=== PATIENT | female | born 1980 | race Native Hawaiian/Other Pacific Islander ===

== ENCOUNTER 2020-08-17 07:58 | Emergency (ER) | payer OTHER ==
[~2020-08-17] VITALS: Ht 157.5 cm; Wt 70.5 kg
[2020-08-17] MEDS ORDERED: NS 1,000 ML IV ONE (08:35)
[2020-08-17 09:03] LABS: BASO % 0.4 % (0.0-1.0); EOS # 0.2 10^3/uL (0.0-0.5); EOS % 2.3 % (0.0-3.0); HEMATOCRIT 37.8 % (36.0-47.0); HEMOGLOBIN 12.9 g/dl (12.0-15.5); LYMPH % 27.3 % (24.0-44.0); MEAN CORPUSCULAR HEMOGLOBIN 31.7 pg (27.0-33.0); MEAN CORPUSCULAR HGB CONC 34.1 g/dl (32.0-36.5); MEAN CORPUSCULAR VOLUME 92.9 fl (80.0-96.0); MONO # 0.6 10^3/uL (0.0-0.8); MONO % 7.9 % (2.0-8.0); NEUTROPHILS # 4.5 10^3/uL (1.5-8.5); NEUTROPHILS % 61.7 % (36.0-66.0); PLATELET COUNT, AUTOMATED 237 10^3/uL (150-450); RED BLOOD COUNT 4.07 10^6/uL (4.00-5.40); WHITE BLOOD COUNT 7.4 10^3/uL (4.0-10.0)
[2020-08-17 09:34] LABS: HCG, SERUM QUALITATIVE POSITIVE (NEGATIVE)
[2020-08-17 09:36] LABS: ALBUMIN 3.7 GM/DL (3.2-5.2); ALT/SGPT 22 U/L (12-78); BILIRUBIN,DIRECT < 0.1 MG/DL (0.0-0.2); BILIRUBIN,TOTAL 0.2 MG/DL (0.2-1.0); BLOOD UREA NITROGEN 18 MG/DL (7-18); CALCIUM LEVEL 8.5 MG/DL (8.5-10.1); CARBON DIOXIDE LEVEL 23 MEQ/L (21-32); CHLORIDE LEVEL 108 MEQ/L (98-107); CREATININE FOR GFR 0.62 MG/DL (0.55-1.30); GLOMERULAR FILTRATION RATE > 60.0 (>58); GLUCOSE, FASTING 90 MG/DL (70-100); LIPASE 111 U/L (73-393); POTASSIUM SERUM 4.4 MEQ/L (3.5-5.1); SODIUM LEVEL 138 MEQ/L (136-145); TOTAL PROTEIN 7.2 GM/DL (6.4-8.2)
[2020-08-17 10:16] LABS: HCG, SERUM QUANTITATIVE 15291 MIU/ML
--- NOTE | 2020-08-17 10:50 | REP ---
INDICATION: abdominal pain, . COMPARISON: None. TECHNIQUE: Multiple sonographic images of the pelvis including Doppler ultrasound. FINDINGS: The uterus is anteverted and enlarged measuring 10.3 x 5.8 x 6.1 cm. There is an intrauterine gestational sac without a pole. The mean gestational sac diameter is 10.8 mm. This corresponds to a gestational age of 5 weeks 6 days. Right ovary: The right ovary is normal size measuring 2.7 x 1.2 x 2.4 cm. There is no dominant mass or cyst. Left ovary: The left ovary is upper normal size measuring 3.8 x 3.0 x 4.4 cm. There is a left ovarian cyst measuring 3.1 x 2.4 x 2.6 cm. There is vascular flow in both ovaries. The Doppler resistive index in the parenchymal arteries of the right ovary 0.65 the left ovary 0.54. Echogenic debris is incidentally identified in the bladder. IMPRESSION: Intrauterine gestational sac without a pole at this time. Estimated gestational age based on mean sac diameter is 5 weeks 6 days. There is a 3.1 cm left ovarian cyst. There is vascular flow in both ovaries. There is echogenic debris in the bladder. <Electronically signed by Ata Proctor > 08/17/20 [id number]
[2020-08-17] MEDS ORDERED: MACR100C43 PO (12:55)
[2020-08-17] MEDS ORDERED: PRENTAB29 PO (12:55)
[2020-08-17] MEDS ORDERED: REGL5TAB2 PO (12:55)
[2020-08-17 14:00] VITALS: BP 99/61
== END 2020-08-17 14:17 | disposition home or self-care (01) ==
LOC: M ED 07:58
DX: O23.41 Unspecified infection of urinary tract in pregnancy, first trimester (principal); O26.891 Other specified pregnancy related conditions, first trimester; O10.011 Pre-existing essential hypertension complicating pregnancy, first trimester; O99.281 Endocrine, nutritional and metabolic diseases complicating pregnancy, first trimester; E78.5 Hyperlipidemia, unspecified; M10.9 Gout, unspecified; Z87.442 Personal history of urinary calculi; O99.210 Obesity complicating pregnancy, unspecified trimester; O99.331 Smoking (tobacco) complicating pregnancy, first trimester; F17.210 Nicotine dependence, cigarettes, uncomplicated; Z3A.01 Less than 8 weeks gestation of pregnancy

== ENCOUNTER 2020-09-03 20:10 | Emergency (ER) | payer OTHER ==
[~2020-09-03] VITALS: Ht 157.5 cm; Wt 79.1 kg
[~2020-09-03 20:10] MED LIST: MACR100C43 PO; PRENTAB29 PO; REGL5TAB2 PO
[2020-09-03 20:11] VITALS: BP 155/86
[2020-09-03 21:47] LABS: APPEARANCE, URINE HAZY (CLEAR); BACTERIA, URINE AUTO NEGATIVE (NEGATIVE); BILIRUBIN, URINE AUTO NEGATIVE (NEGATIVE); BLOOD, URINE BLOOD 2+ (NEGATIVE); COLOR, URINE YELLOW (YELLOW); GLUCOSE, URINE (UA) AUTO NEGATIVE (NEGATIVE); KETONE, URINE AUTO NEGATIVE (NEGATIVE); LEUKOCYTE ESTERASE, URINE AUTO TRACE (NEGATIVE); MUCUS, URINE SMALL (NEGATIVE); NITRITE, URINE AUTO POSITIVE (NEGATIVE); PROTEIN, URINE AUTO NEGATIVE (NEGATIVE); RBC, URINE AUTO 14 /HPF (0-3); SPECIFIC GRAVITY URINE AUTO 1.017 (1.002-1.035); SQUAMOUS EPITHELIAL CELL UR AU 3 /HPF (0-6); UROBILINOGEN, URINE AUTO 0.2 mg/dL (0.0-2.0); WBC, URINE AUTO 16 /HPF (0-3)
[2020-09-03 21:48] LABS: HEMATOCRIT 36.7 % (36.0-47.0); HEMOGLOBIN 12.3 g/dl (12.0-15.5); MEAN CORPUSCULAR HEMOGLOBIN 31.3 pg (27.0-33.0); MEAN CORPUSCULAR HGB CONC 33.5 g/dl (32.0-36.5); MEAN CORPUSCULAR VOLUME 93.4 fl (80.0-96.0); PLATELET COUNT, AUTOMATED 280 10^3/uL (150-450); RED BLOOD COUNT 3.93 10^6/uL (4.00-5.40); WHITE BLOOD COUNT 9.6 10^3/uL (4.0-10.0)
[2020-09-03 22:23] LABS: ALBUMIN 3.7 GM/DL (3.2-5.2); ALT/SGPT 27 U/L (12-78); BILIRUBIN,TOTAL 0.2 MG/DL (0.2-1.0); BLOOD UREA NITROGEN 8 MG/DL (7-18); CALCIUM LEVEL 8.6 MG/DL (8.5-10.1); CARBON DIOXIDE LEVEL 27 MEQ/L (21-32); CHLORIDE LEVEL 106 MEQ/L (98-107); CREATININE FOR GFR 0.66 MG/DL (0.55-1.30); GLOMERULAR FILTRATION RATE > 60.0 (>58); GLUCOSE, FASTING 98 MG/DL (70-100); HCG, SERUM QUANTITATIVE 59684 MIU/ML; POTASSIUM SERUM 3.6 MEQ/L (3.5-5.1); SODIUM LEVEL 139 MEQ/L (136-145); TOTAL PROTEIN 7.1 GM/DL (6.4-8.2)
--- NOTE | 2020-09-03 23:02 | REPVR ---
PROCEDURE INFORMATION: Exam: US First Trimester, Transabdominal Exam date and time: 09/03/20 (9:30pm) Age: 40 years old Clinical indication: female. RLQ pain and spotting. Gestational age: 7 weeks 6 days. . TECHNIQUE: Imaging protocol: Real-time transabdominal obstetrical ultrasound of the maternal pelvis and a first trimester , less than 14 weeks 0 days, with image documentation. COMPARISON: No relevant prior studies available FINDINGS: The LMP is reported to be: 07/10/20 Based on the menstrual history, the current expected age = 7 weeks 6 days. An early single intrauterine gestation is likely identified, approx. 6 weeks 2 days gestational age, based on the crown-rump length (CRL = 4.6 mm). Based on the CRL measurement, the REINIER = 04/27/21. The mean sac diameter (MSD) = 26 mm. This corresponds to an expected age = 7 weeks 6 days. No heart motion is recorded. A yolk sac is visualized. The uterus is anteverted, measuring 10.6 x 6.1 x 8.8 cm in dimensions. A few small Nabothian cysts (largest measures 7 x 7 mm size). The maternal right ovary measures 2.9 x 1.6 x 1.5 cm in dimensions. The left ovary measures 3.7 x 3.3 x 2.9 cm in dimensions. Left ovarian cyst (2.8 x 2.8 x 2.2 cm size) (2.6 cm avg. size). There is no evidence of torsion on Doppler evaluation. No free pelvic fluid is appreciated. No solid adnexal mass. IMPRESSION: The findings are compatible with DEMISE at approx. 6-7 weeks gestational age. A single intrauterine is likely identified. A yolk sac is visualized. No heart motion is recorded. Electronically signed by: Marina Soliman On 09/03/2020 23:01:54 PM
[2020-09-03 23:47] LABS: CHLAMYDIA DNA AMPLIFICATION NEGATIVE (NEGATIVE); GC DNA AMPLIFICATION NEGATIVE (NEGATIVE)
== END 2020-09-04 00:09 | disposition home or self-care (01) ==
LOC: M ED 20:10
DX: O20.0 Threatened abortion (principal); Z3A.01 Less than 8 weeks gestation of pregnancy

== ENCOUNTER 2021-01-18 00:40 | Emergency (ER) | payer OTHER ==
[~2021-01-18] VITALS: Ht 157.5 cm; Wt 74.4 kg
[2021-01-18 00:41] VITALS: BP 138/91
[2021-01-19] MEDS ORDERED: KETO10TAB PO (10:15)
== END 2021-01-18 04:43 | disposition left against medical advice (07) ==
LOC: M ED 00:40
DX: Z53.29 Procedure and treatment not carried out because of patient's decision for other reasons (principal)

== ENCOUNTER 2021-01-19 06:53 | Emergency (ER) | payer OTHER ==
[~2021-01-19] VITALS: Ht 157.5 cm; Wt 74.4 kg
[2021-01-19] MEDS ORDERED: KETOROLAC 30 MG/ML 1ML VIAL IV ONE (07:30)
[2021-01-19] MEDS ORDERED: ISOVUE-370 76% 100ML VIAL As Ordered ONE (08:20)
[2021-01-19 08:21] LABS: BASO % 0.7 % (0.0-1.0); EOS # 0.1 10^3/uL (0.0-0.5); EOS % 2.2 % (0.0-3.0); HEMATOCRIT 40.6 % (36.0-47.0); HEMOGLOBIN 13.3 g/dl (12.0-15.5); LYMPH # 1.7 10^3/uL (1.5-5.0); LYMPH % 28.4 % (24.0-44.0); MEAN CORPUSCULAR HEMOGLOBIN 29.4 pg (27.0-33.0); MEAN CORPUSCULAR HGB CONC 32.8 g/dl (32.0-36.5); MEAN CORPUSCULAR VOLUME 89.6 fl (80.0-96.0); MONO # 0.5 10^3/uL (0.0-0.8); MONO % 8.8 % (2.0-8.0); NEUTROPHILS # 3.5 10^3/uL (1.5-8.5); NEUTROPHILS % 59.7 % (36.0-66.0); PLATELET COUNT, AUTOMATED 253 10^3/uL (150-450); RED BLOOD COUNT 4.53 10^6/uL (4.00-5.40); WHITE BLOOD COUNT 5.8 10^3/uL (4.0-10.0)
--- NOTE | 2021-01-19 08:22 | REP ---
INDICATION: right flank and RUQ pain 3 weeks. COMPARISON: None. TECHNIQUE: Transabdominal right upper quadrant sonography. Scan quality is mildly inhibited by bowel gas. FINDINGS: Scanning through the right upper quadrant of the abdomen demonstrates a normal sized, thin-walled gallbladder without evidence of stone or polyp. Common bile duct is normal measuring 0.3 cm in greatest diameter. No focal liver lesion is seen. Liver size is normal. No pancreatic abnormality is observed. No right renal abnormality is seen. There is no evidence of ascites. The right kidney measures 10.9 by 5.2 x 3.9 cm. IMPRESSION: Negative right upper quadrant sonography. <Electronically signed by Sergio Alaniz > 01/19/21 [id number]
[2021-01-19 08:28] LABS: ALBUMIN 3.6 GM/DL (3.2-5.2); ALT/SGPT 32 U/L (12-78); BILIRUBIN,DIRECT < 0.1 MG/DL (0.0-0.2); BILIRUBIN,TOTAL 0.3 MG/DL (0.2-1.0); LIPASE 151 U/L (73-393); TOTAL PROTEIN 7.3 GM/DL (6.4-8.2)
--- NOTE | 2021-01-19 08:33 | REP ---
INDICATION: right upper quadrant and right flank pain. COMPARISON: None TECHNIQUE: Axial contrast-enhanced images from the lung bases to the pubic symphysis using 100 cc Isovue 370 intravenous contrast material. Coronal and sagittal reformations obtained. This CT examination was performed using the following dose reduction techniques: Automated exposure control, adjustment of mA and/or kv according to the patient's size, and the use of iterative reconstruction technique. FINDINGS: Lung bases are clear. Liver, spleen, pancreas, gallbladder, bilateral adrenal glands and kidneys are normal. The enteric system including stomach, small, and large bowel appears normal. No evidence for obstruction or acute inflammatory process. Normal terminal ileum and appendix are identified in the right lower quadrant. Pelvis demonstrates normal bladder and age-appropriate uterus/adnexa. No ascites. No free air. No intraperitoneal or retroperitoneal adenopathy. Abdominal aorta and vasculature appear normal. Musculoskeletal structures are intact and without acute osseous abnormality. IMPRESSION: No acute abdominopelvic pathology appreciated. <Electronically signed by Candido Patel > 01/19/21 [id number]
[2021-01-19 09:56] VITALS: BP 122/80
[2021-01-19] MEDS ORDERED: KETO10TAB PO (10:15)
== END 2021-01-19 10:22 | disposition home or self-care (01) ==
LOC: M ED 06:53
DX: R10.9 Unspecified abdominal pain (principal); R11.0 Nausea
CPT/HCPCS: 74177; 76705; 80047; 80076; 81001; 83690; 84702; 85025; 87088; 87186; 96374; 99284; J1885; Q9967

== ENCOUNTER 2021-01-21 04:33 | Emergency (ER) | payer OTHER ==
[~2021-01-21] VITALS: Ht 157.5 cm; Wt 67.3 kg
[~2021-01-21 04:33] MED LIST changes: +KETO10TAB PO
[2021-01-21 06:42] LABS: BASO % 0.3 % (0.0-1.0); EOS # 0.1 10^3/uL (0.0-0.5); EOS % 1.5 % (0.0-3.0); HEMATOCRIT 38.7 % (36.0-47.0); HEMOGLOBIN 12.7 g/dl (12.0-15.5); LYMPH # 1.7 10^3/uL (1.5-5.0); LYMPH % 24.3 % (24.0-44.0); MEAN CORPUSCULAR HEMOGLOBIN 29.4 pg (27.0-33.0); MEAN CORPUSCULAR HGB CONC 32.8 g/dl (32.0-36.5); MEAN CORPUSCULAR VOLUME 89.6 fl (80.0-96.0); MONO # 0.6 10^3/uL (0.0-0.8); MONO % 8.6 % (2.0-8.0); NEUTROPHILS # 4.4 10^3/uL (1.5-8.5); NEUTROPHILS % 65.2 % (36.0-66.0); PLATELET COUNT, AUTOMATED 250 10^3/uL (150-450); RED BLOOD COUNT 4.32 10^6/uL (4.00-5.40); WHITE BLOOD COUNT 6.8 10^3/uL (4.0-10.0)
[2021-01-21 07:21] LABS: HCG, SERUM QUALITATIVE NEGATIVE (NEGATIVE)
[2021-01-21 07:24] LABS: ALBUMIN 3.5 GM/DL (3.2-5.2); ALT/SGPT 32 U/L (12-78); BILIRUBIN,DIRECT 0.1 MG/DL (0.0-0.2); BILIRUBIN,TOTAL 0.4 MG/DL (0.2-1.0); BLOOD UREA NITROGEN 12 MG/DL (7-18); CALCIUM LEVEL 8.6 MG/DL (8.5-10.1); CARBON DIOXIDE LEVEL 26 MEQ/L (21-32); CHLORIDE LEVEL 109 MEQ/L (98-107); CK-MB VALUE MASS < 1.0 NG/ML (<3.6); CPK CREATINE PHOSPHOKINASE 89 U/L (26-192); CREATININE FOR GFR 0.77 MG/DL (0.55-1.30); GLOMERULAR FILTRATION RATE > 60.0 (>58); GLUCOSE, FASTING 95 MG/DL (70-100); LIPASE 138 U/L (73-393); MB/CK RELATIVE INDEX 1.12 (< OR =4); SODIUM LEVEL 140 MEQ/L (136-145); TOTAL PROTEIN 7.1 GM/DL (6.4-8.2); TROPONIN I 0.04 NG/ML (< 0.10)
--- NOTE | 2021-01-21 07:56 | REPVR ---
PROCEDURE INFORMATION: Exam: CT Head Without Contrast Exam date and time: 01/21/2021 5:57 AM Age: 40 years old Clinical indication: Numbness / parasthesia TECHNIQUE: Imaging protocol: Computed tomography of the head without contrast. Radiation optimization: All CT scans at this facility use at least one of these dose optimization techniques: automated exposure control; mA and/or kV adjustment per patient size (includes targeted exams where dose is matched to clinical indication); or iterative reconstruction. COMPARISON: No relevant prior studies available. FINDINGS: Brain: Normal. No hemorrhage. Unremarkable white matter. No mass effect. Cerebral ventricles: No ventriculomegaly. Paranasal sinuses: Visualized sinuses are unremarkable. No fluid levels. Mastoid air cells: Visualized mastoid air cells are well aerated. Bones/joints: Unremarkable. No acute fracture. Soft tissues: Unremarkable. IMPRESSION: No acute intracranial abnormality. Electronically signed by: Joe Zhang On 01/21/2021 07:56:27 AM
--- NOTE | 2021-01-21 08:09 | REP ---
INDICATION: CHEST PAIN. COMPARISON: No comparison chest. TECHNIQUE: Portable upright AP chest radiograph. FINDINGS: The lungs are well inflated and free of infiltrate. Pleural angles are sharp. Heart size is normal. Pulmonary vasculature is not increased. EKG monitoring electrodes are present. IMPRESSION: No active disease. <Electronically signed by Sergio Alaniz > 01/21/21 [id number]
[2021-01-21] MEDS ORDERED: MACR100C43 PO (11:08)
--- NOTE | 2021-01-21 12:12 | REPVR ---
PROCEDURE INFORMATION: Exam: MR Head Without Contrast Exam date and time: 01/21/2021 11:24 AM Age: 40 years old Clinical indication: Pain; Headache not specified; Additional info: Paresthesia TECHNIQUE: Imaging protocol: MR of the head without contrast. COMPARISON: CT Head without contrast 01/21/2021 7:42 AM FINDINGS: Brain: No acute hemorrhage or acute territorial infarct. Brain volume is maintained. The expected vascular flow voids are present centrally. Partially empty sella is noted as a normal variant, as is benign tonsillar ectopia. These are of no acute clinical significance. Cerebral ventricles: Normal. No ventriculomegaly. Bones/joints: Unremarkable. Paranasal sinuses: Normal as visualized. No acute sinusitis. Mastoid air cells: Normal as visualized. No mastoid effusion. Orbital cavity: Unremarkable. Soft tissues: Unremarkable. IMPRESSION: No acute intracranial abnormality. No significant change from the same day CT scan. Electronically signed by: Joe Zhang On 01/21/2021 12:11:59 PM
--- NOTE | 2021-01-21 12:16 | REPVR ---
PROCEDURE INFORMATION: Exam: MRA Head Without Contrast; Arteriography Exam date and time: 01/21/2021 11:24 AM Age: 40 years old Clinical indication: Pain; Headache; Additional info: Paresthesia TECHNIQUE: Imaging protocol: Magnetic resonance angiography head without contrast. Exam focused on the arteries. COMPARISON: CT Head without contrast 01/21/2021 7:42 AM FINDINGS: ANTERIOR CIRCULATION: Right internal carotid artery: Focal outpouching directed posteriorly at the level of the carotid terminus on the right, measuring 2 mm and raising the question a small aneurysm here. This is best seen on axial series 201, frame 94. No adjacent stenosis. Right middle cerebral artery: No occlusion or significant stenosis. No aneurysm. Right anterior cerebral artery: No occlusion or significant stenosis. No aneurysm. Left internal carotid artery: Intracranial segment is patent with no significant stenosis. No aneurysm. Left middle cerebral artery: No occlusion or significant stenosis. No aneurysm. Left anterior cerebral artery: No occlusion or significant stenosis. No aneurysm. POSTERIOR CIRCULATION: Right vertebral artery: No occlusion or significant stenosis. No aneurysm. Left vertebral artery: No occlusion or significant stenosis. No aneurysm. Basilar artery: No occlusion or significant stenosis. No aneurysm. Right posterior cerebral artery: origin of the right posterior cerebral artery without significant stenosis. Left posterior cerebral artery: No occlusion or significant stenosis. No aneurysm. IMPRESSION: 1. No significant stenosis. 2. origin right posterior cerebral artery. 3. Question tiny aneurysm of the ICA terminus on the right. That can be confirmed with CTA imaging. Electronically signed by: Joe Zhang On 01/21/2021 12:15:40 PM
[2021-01-21 13:01] VITALS: BP 148/84
--- NOTE | 2021-01-21 21:21 | ECGEPIP ---
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
--- NOTE | 2021-01-26 11:33 | ED PDOC ---
Post-Departure Follow-Up radiology report faxed to [facility] neurology Barbie Velasquez MD Jan 26, 2021 11:32
== END 2021-01-21 13:04 | disposition home or self-care (01) ==
LOC: M ED 04:33
DX: R20.2 Paresthesia of skin (principal)

== ENCOUNTER 2021-02-08 15:03 | Emergency (ER) | payer OTHER ==
[~2021-02-08] VITALS: Ht 157.5 cm; Wt 68.2 kg
--- NOTE | 2021-02-08 17:04 | REP ---
INDICATION: chest pressure. COMPARISON: 01/21/2021. TECHNIQUE: Single portable AP view of the chest was performed. The study is performed at 4:26 p.m. and is submitted for interpretation 4:56 p.m.. FINDINGS: There is no acute infiltrate or pulmonary edema. Lungs are clear. The heart is not significantly enlarged. The mediastinal silhouette is unremarkable. The visualized osseous structures are intact. IMPRESSION: No acute pulmonary disease. <Electronically signed by Ata Preciado > 02/08/21 [id number]
[2021-02-08 17:07] LABS: BASO % 0.4 % (0.0-1.0); EOS # 0.1 10^3/uL (0.0-0.5); EOS % 1.3 % (0.0-3.0); HEMATOCRIT 40.9 % (36.0-47.0); HEMOGLOBIN 13.3 g/dl (12.0-15.5); LYMPH # 2.1 10^3/uL (1.5-5.0); LYMPH % 24.9 % (24.0-44.0); MEAN CORPUSCULAR HEMOGLOBIN 29.3 pg (27.0-33.0); MEAN CORPUSCULAR HGB CONC 32.5 g/dl (32.0-36.5); MEAN CORPUSCULAR VOLUME 90.1 fl (80.0-96.0); MONO # 0.6 10^3/uL (0.0-0.8); MONO % 6.7 % (2.0-8.0); NEUTROPHILS # 5.7 10^3/uL (1.5-8.5); NEUTROPHILS % 66.5 % (36.0-66.0); PLATELET COUNT, AUTOMATED 255 10^3/uL (150-450); RED BLOOD COUNT 4.54 10^6/uL (4.00-5.40); WHITE BLOOD COUNT 8.5 10^3/uL (4.0-10.0)
[2021-02-08 17:38] LABS: BLOOD UREA NITROGEN 12 MG/DL (7-18); CALCIUM LEVEL 9.2 MG/DL (8.5-10.1); CARBON DIOXIDE LEVEL 28 MEQ/L (21-32); CHLORIDE LEVEL 108 MEQ/L (98-107); CPK CREATINE PHOSPHOKINASE 87 U/L (26-192); CREATININE FOR GFR 0.79 MG/DL (0.55-1.30); GLOMERULAR FILTRATION RATE > 60.0 (>58); GLUCOSE, FASTING 91 MG/DL (70-100); POTASSIUM SERUM 4.6 MEQ/L (3.5-5.1); SODIUM LEVEL 139 MEQ/L (136-145)
[2021-02-08 17:39] LABS: CK-MB VALUE MASS < 1.0 NG/ML (<3.6); MAGNESIUM LEVEL 2.5 MG/DL (1.8-2.4); MB/CK RELATIVE INDEX 1.15 (< OR =4); TROPONIN I 0.03 NG/ML (< 0.10)
[2021-02-08] MEDS ORDERED: ISOVUE-370 76% 100ML VIAL As Ordered ONE (18:59)
[2021-02-08 20:10] LABS: CK-MB VALUE MASS 1.1 NG/ML (<3.6); MB/CK RELATIVE INDEX 1.55 (< OR =4); TROPONIN I 0.03 NG/ML (< 0.10)
--- NOTE | 2021-02-08 20:35 | REPVR ---
PROCEDURE INFORMATION: Exam: CTA Chest With Contrast Exam date and time: 02/08/2021 7:39 PM Age: 40 years old Clinical indication: Pain; Chest pressure; Additional info: Rule out pe TECHNIQUE: Imaging protocol: Computed tomographic angiography of the chest with contrast. 3D rendering (Not supervised by radiologist): MIP and/or 3D reconstructed images were created by the technologist. Radiation optimization: All CT scans at this facility use at least one of these dose optimization techniques: automated exposure control; mA and/or kV adjustment per patient size (includes targeted exams where dose is matched to clinical indication); or iterative reconstruction. Contrast material: ISOVUE 370; Contrast volume: 75 ml; Contrast route: INTRAVENOUS (IV); COMPARISON: CR Chest, 1 view 02/08/2021 4:24 PM FINDINGS: Pulmonary arteries: There are no pulmonary emboli. Aorta: There is no aortic dissection or aneurysm. Lungs: Bibasilar ground-glass opacities likely represent atelectasis. No segmental or lobar infiltrates. Pleural spaces: Unremarkable. No pneumothorax. No pleural effusion. Heart: Unremarkable. No cardiomegaly. No pericardial effusion. Lymph nodes: Unremarkable. No enlarged lymph nodes. Bones/joints: Unremarkable. No acute fracture. Soft tissues: Bilateral breast implants. IMPRESSION: 1. There is no aortic dissection or aneurysm. 2. There are no pulmonary emboli. 3. No acute pulmonary parenchymal abnormalities. Electronically signed by: Shaheen Knapp On 02/08/2021 20:35:19 PM
[2021-02-08 21:10] VITALS: BP 108/80
--- NOTE | 2021-02-09 19:01 | ECGEPIP ---
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
== END 2021-02-08 21:13 | disposition home or self-care (01) ==
LOC: EDBD 15:03 → M ED 15:03
DX: R07.89 Other chest pain (principal); G56.20 Lesion of ulnar nerve, unspecified upper limb
CPT/HCPCS: 36415; 71045; 71275; 80048; 82550; 82553; 83735; 84484; 84702; 85025; 93005; 99284; Q9967

== ENCOUNTER 2021-07-03 21:43 | Emergency (ER) | payer OTHER ==
[~2021-07-03] VITALS: Ht 157.5 cm; Wt 75.2 kg
[2021-07-04] MEDS ORDERED: predniSONE 20 MG TAB PO ONE
[2021-07-04] MEDS ORDERED: KETOROLAC 60MG 2ML VIAL IM ONE
[2021-07-04] MEDS ORDERED: BENZONATATE 100MG CAPSULE PO ONE
[2021-07-04] MEDS ORDERED: IBUP-1022 PO (00:17)
[2021-07-04] MEDS ORDERED: BENZ200C70 PO (00:17)
[2021-07-04] MEDS ORDERED: PROAAER10 INH (00:17)
[2021-07-04 00:42] VITALS: BP 137/91
== END 2021-07-04 00:49 | disposition home or self-care (01) ==
LOC: M ED 21:43
DX: R05.9 Cough, unspecified (principal); R06.02 Shortness of breath; U07.1 COVID-19
CPT/HCPCS: 96372; 99283; J1885; J7512

== ENCOUNTER 2021-08-13 22:49 | Emergency (ER) | payer OTHER ==
[~2021-08-13] VITALS: Ht 157.5 cm; Wt 73.0 kg
[2021-08-13 22:49] VITALS: BP 126/80
[~2021-08-13 22:49] MED LIST changes: +BENZ200C70 PO; +IBUP-1022 PO; +PROAAER10 INH
== END 2021-08-14 02:02 | disposition left against medical advice (07) ==
LOC: M ED 22:49
DX: Z53.29 Procedure and treatment not carried out because of patient's decision for other reasons (principal)

== ENCOUNTER 2022-01-01 06:23 | Emergency (ER) | payer OTHER ==
[~2022-01-01] VITALS: Ht 157.5 cm; Wt 81.8 kg
[2022-01-01] MEDS ORDERED: PREN1TAB11 PO (06:29)
[2022-01-01] MEDS ORDERED: ASPI1CHW3 PO (06:32)
[2022-01-01 07:07] LABS: BASO % 0.3 % (0.0-1.0); EOS # 0.2 10^3/uL (0.0-0.5); EOS % 2.4 % (0.0-3.0); HEMATOCRIT 33.6 % (36.0-47.0); LYMPH # 1.9 10^3/uL (1.5-5.0); LYMPH % 22.2 % (24.0-44.0); MEAN CORPUSCULAR HGB CONC 32.7 g/dl (32.0-36.5); MEAN CORPUSCULAR VOLUME 88.7 fl (80.0-96.0); MONO # 0.8 10^3/uL (0.0-0.8); MONO % 9.6 % (2.0-8.0); NEUTROPHILS # 5.6 10^3/uL (1.5-8.5); NEUTROPHILS % 65.2 % (36.0-66.0); PLATELET COUNT, AUTOMATED 355 10^3/uL (150-450); RED BLOOD COUNT 3.79 10^6/uL (4.00-5.40); WHITE BLOOD COUNT 8.7 10^3/uL (4.0-10.0)
[2022-01-01] MEDS ORDERED: ACETAMINOPHEN 500 MG TAB PO ONE (07:30)
[2022-01-01 09:31] LABS: BLOOD UREA NITROGEN 8 MG/DL (7-18); CALCIUM LEVEL 8.5 MG/DL (8.5-10.1); CARBON DIOXIDE LEVEL 23 MEQ/L (21-32); CHLORIDE LEVEL 107 MEQ/L (98-107); CREATININE FOR GFR 0.55 MG/DL (0.55-1.30); GLOMERULAR FILTRATION RATE > 60.0 (>58); GLUCOSE, FASTING 93 MG/DL (70-100); NT-PRO BNP 7 PG/ML (<125); POTASSIUM SERUM 3.8 MEQ/L (3.5-5.1); SODIUM LEVEL 138 MEQ/L (136-145)
[2022-01-01 12:00] VITALS: BP 122/74
== END 2022-01-01 12:25 | disposition home or self-care (01) ==
LOC: M ED 06:23
DX: O99.891 Other specified diseases and conditions complicating pregnancy (principal); R07.9 Chest pain, unspecified; R94.31 Abnormal electrocardiogram [ECG] [EKG]; Z3A.30 30 weeks gestation of pregnancy; Z79.82 Long term (current) use of aspirin; Z83.3 Family history of diabetes mellitus

== ENCOUNTER 2022-01-06 02:21 | Emergency (ER) | payer OTHER ==
[~2022-01-06] VITALS: Ht 157.5 cm; Wt 75.2 kg
[~2022-01-06 02:21] MED LIST changes: +ASPI1CHW3 PO; +PREN1TAB11 PO
[2022-01-06] MEDS ORDERED: NS 1,000 ML IV ONE (02:30)
[2022-01-06] MEDS ORDERED: GI COCKTAIL 50ML BTL(HYOSCYAMINE/MAALOX/LIDOCAINE VISCOUS)(1:3:1) PO ONE (02:45)
[2022-01-06 02:52] LABS: BASO % 0.1 % (0.0-1.0); EOS # 0.2 10^3/uL (0.0-0.5); EOS % 1.8 % (0.0-3.0); HEMATOCRIT 32.2 % (36.0-47.0); HEMOGLOBIN 10.6 g/dl (12.0-15.5); LYMPH # 1.2 10^3/uL (1.5-5.0); LYMPH % 13.6 % (24.0-44.0); MEAN CORPUSCULAR HEMOGLOBIN 28.7 pg (27.0-33.0); MEAN CORPUSCULAR HGB CONC 32.9 g/dl (32.0-36.5); MEAN CORPUSCULAR VOLUME 87.3 fl (80.0-96.0); MONO # 0.6 10^3/uL (0.0-0.8); MONO % 6.5 % (2.0-8.0); NEUTROPHILS # 6.7 10^3/uL (1.5-8.5); NEUTROPHILS % 77.4 % (36.0-66.0); PLATELET COUNT, AUTOMATED 347 10^3/uL (150-450); RED BLOOD COUNT 3.69 10^6/uL (4.00-5.40); WHITE BLOOD COUNT 8.7 10^3/uL (4.0-10.0)
[2022-01-06 03:23] LABS: CK-MB VALUE MASS < 1.0 NG/ML (<3.6); CPK CREATINE PHOSPHOKINASE 56 U/L (26-192); MB/CK RELATIVE INDEX 1.79 (< OR =4)
[2022-01-06 03:33] LABS: BLOOD UREA NITROGEN 8 MG/DL (7-18); CREATININE FOR GFR 0.57 MG/DL (0.55-1.30); GLOMERULAR FILTRATION RATE > 60.0 (>58); GLUCOSE, FASTING 113 MG/DL (70-100)
[2022-01-06 03:34] LABS: ALBUMIN 2.7 GM/DL (3.2-5.2); ALT/SGPT 19 IU/L (0-32); BILIRUBIN,TOTAL 0.2 MG/DL (0.2-1.0); CALCIUM LEVEL 8.6 MG/DL (8.5-10.1); CARBON DIOXIDE LEVEL 23 mmol/L (20-29); CHLORIDE LEVEL 107 MEQ/L (98-107); LIPASE 209 U/L (73-393); POTASSIUM SERUM 3.9 MEQ/L (3.5-5.1); SODIUM LEVEL 138 MEQ/L (136-145); TOTAL PROTEIN 6.5 GM/DL (6.4-8.2)
[2022-01-06] MEDS ORDERED: PEPC1TAB5 PO (04:34)
[2022-01-06 05:00] VITALS: BP 120/73
== END 2022-01-06 05:17 | disposition home or self-care (01) ==
LOC: EDBD 02:21 → M ED 02:21
DX: O99.613 Diseases of the digestive system complicating pregnancy, third trimester (principal); K21.9 Gastro-esophageal reflux disease without esophagitis; Z3A.32 32 weeks gestation of pregnancy; Z79.899 Other long term (current) drug therapy; Z79.82 Long term (current) use of aspirin

== ENCOUNTER 2022-02-28 14:05 | Inpatient (IN) | payer OTHER ==
[2022-02-28] VITALS (43 sets, daily range): BP systolic 118–188; BP diastolic 62–108
[~2022-02-28] VITALS: Ht 157.5 cm; Wt 87.5 kg
[~2022-02-28 14:05] MED LIST changes: +PEPC1TAB5 PO
[2022-02-28] MEDS ORDERED: HOME MED LIST COMPLETE! XX SCH (15:15)
[2022-02-28 15:46] LABS: BASO % 0.3 % (0.0-1.0); EOS # 0.1 10^3/uL (0.0-0.5); EOS % 1.7 % (0.0-3.0); HEMATOCRIT 28.5 % (36.0-47.0); HEMOGLOBIN 8.9 g/dl (12.0-15.5); LYMPH # 1.5 10^3/uL (1.5-5.0); LYMPH % 23.9 % (24.0-44.0); MEAN CORPUSCULAR HEMOGLOBIN 24.7 pg (27.0-33.0); MEAN CORPUSCULAR HGB CONC 31.2 g/dl (32.0-36.5); MEAN CORPUSCULAR VOLUME 79.2 fl (80.0-96.0); MONO # 0.5 10^3/uL (0.0-0.8); MONO % 8.3 % (2.0-8.0); NEUTROPHILS # 4.2 10^3/uL (1.5-8.5); NEUTROPHILS % 65.3 % (36.0-66.0); PLATELET COUNT, AUTOMATED 337 10^3/uL (150-450); WHITE BLOOD COUNT 6.4 10^3/uL (4.0-10.0)
[2022-02-28] MEDS ORDERED: CARBOPROST TROMETHAMINE 250 MCG/ML AMP IM PRN ×2 (16:00→16:30)
[2022-02-28] MEDS ORDERED: OXYTOCIN DRIP 30 UNITS in IV 1 EA IV PRN ×10 (16:00→16:30)
[2022-02-28] MEDS ORDERED: LR 1,000 ML IV SCH (16:00)
[2022-02-28] MEDS ORDERED: TRANEXAMIC ACID INJection 1,000 MG in NS 100 ML IV PRN ×2 (16:00→16:30)
[2022-02-28 16:08] LABS: TOTAL PROTEIN,RANDOM URINE 147.3 MG/DL (0.0-12.0)
[2022-02-28 16:25] LABS: ALT/SGPT 18 U/L (12-78); BILIRUBIN,TOTAL 0.2 MG/DL (0.2-1.0); CREATININE FOR GFR 0.73 MG/DL (0.55-1.30); GLOMERULAR FILTRATION RATE > 60.0 (>58); LDH LACTATE DEHYDROGENASE 190 U/L (84-246); URIC ACID 5.1 MG/DL (2.6-6.0)
[2022-02-28] MEDS ORDERED: MAG Sulf (L&D) 4 GM/100 ML 4 GM in IV 1 EA IV ONE (16:30)
[2022-02-28] MEDS ORDERED: LABETALOL 100MG/20ML VIAL IV ONE (16:30)
[2022-02-28] MEDS ORDERED: LIDOCAINE 1% MDV 20ML VIAL INFIL PRN (16:30)
[2022-02-28] MEDS ORDERED: OXYTOCIN INJ 10 UNITS/ML VIAL (J2590) IM PRN (16:30)
[2022-02-28] MEDS ORDERED: OXYTOCIN INJ 10 UNITS/ML VIAL (J2590) IV PRN (16:30)
[2022-02-28] MEDS ORDERED: PENICILLIN G POTASSIUM 5 MU IV 5 MU in D5W MINI-BAG PLUS 100 ML IV STA ×2 (16:32→21:31)
[2022-02-28] MEDS ORDERED: BETAMETHASONE SOLUSPAN 6MG/ML 5ML VIAL (J0702 PER 3MG) IM SCH (17:00)
[2022-02-28] MEDS: LR 1,000 ML IV SCH (17:16)
[2022-02-28] MEDS: MAG Sulf (OBGYN) 20GM/500ML 20,000 MG in IV 1 EA IV SCH (17:38)
[2022-02-28] MEDS ORDERED: miSOPROStol 50MCG 1/2 TABLET PO ONE ×2 (18:00→23:00)
[2022-02-28] MEDS: ACETAMINOPHEN 500 MG TAB PO PRN (18:36)
[2022-02-28] MEDS ORDERED: LABETALOL 100MG/20ML VIAL IV STA ×2 (19:49→20:27)
[2022-02-28] MEDS ORDERED: PEN G POT 3,000,000 UNIT/50 ML 3,000,000 UNIT in IV 1 EA IV SCH (20:35)
[2022-02-28] MEDS ORDERED: **PENDING PCN ENTRY XX SCH (21:00)
[2022-03-01] VITALS (37 sets, daily range): BP systolic 115–202; BP diastolic 62–96
[2022-03-01] MEDS ORDERED: PEN G POT 3,000,000 UNIT/50 ML 3,000,000 UNIT in IV 1 EA IV SCH (02:00)
[2022-03-01] MEDS: MAG Sulf (OBGYN) 20GM/500ML 20,000 MG in IV 1 EA IV SCH ×3 (03:27→22:01)
[2022-03-01] MEDS: LR 1,000 ML IV SCH ×4 (03:27→22:03)
[2022-03-01] MEDS: ACETAMINOPHEN 500 MG TAB PO PRN ×3 (04:30→20:54)
[2022-03-01 06:43] LABS: HEMATOCRIT 29.3 % (36.0-47.0); HEMOGLOBIN 8.9 g/dl (12.0-15.5); MEAN CORPUSCULAR HEMOGLOBIN 24.5 pg (27.0-33.0); MEAN CORPUSCULAR HGB CONC 30.4 g/dl (32.0-36.5); MEAN CORPUSCULAR VOLUME 80.5 fl (80.0-96.0); PLATELET COUNT, AUTOMATED 341 10^3/uL (150-450); RED BLOOD COUNT 3.64 10^6/uL (4.00-5.40); WHITE BLOOD COUNT 8.4 10^3/uL (4.0-10.0)
[2022-03-01] MEDS: OXYTOCIN DRIP 30 UNITS in IV 1 EA IV SCH (08:37)
[2022-03-01] MEDS ORDERED: AZITHROMYCIN INJ 500 MG, VIAL MATE ADAPTER 1 EACH in NS 250 ML IV ONE (12:50)
[2022-03-01] MEDS ORDERED: ceFAZolin SOD 2 GM in IV 1 EA IV ONE (12:50)
[2022-03-01] MEDS ORDERED: ceFAZolin 2 GM/D5W 50 ML IV BAG (J0690 PER 500MG) As Ordered ONE (12:52)
[2022-03-01] MEDS ORDERED: AZITHROMYCIN INJ 500MG VIAL As Ordered ONE (12:53)
[2022-03-01] MEDS ORDERED: BICITRA 30ML SOLN UDC As Ordered ONE (12:55)
[2022-03-01] MEDS ORDERED: MORPHINE PRES-FREE INJ 10 MG/10 ML VIAL As Ordered ONE (13:13)
[2022-03-01] MEDS ORDERED: OXYTOCIN 30 UNITS IN 0.9% NaCl 500ML IV BAG (J2590) As Ordered ONE (13:14)
[2022-03-01] MEDS ORDERED: PHENYLephrine 500MCG 5ML (100MCG/ML) SYRINGE As Ordered ONE (13:15)
[2022-03-01] MEDS ORDERED: ePHEDrine SULFATE 25 MG/5 ML(5MG/ML) SYRINGE As Ordered ONE (13:15)
[2022-03-01] MEDS ORDERED: KETOROLAC 60MG 2ML VIAL As Ordered ONE (13:19)
[2022-03-01] MEDS ORDERED: ONDANSETRON 4MG 2ML VIAL As Ordered ONE (13:19)
[2022-03-01] MEDS ORDERED: NALOXONE INJ 0.4MG/1ML VIAL (J2310 PER 1MG) IV PRN ×2 (13:30)
[2022-03-01] MEDS ORDERED: METOCLOPRAMIDE INJ 10MG/2ML VIAL (J2765 PER 1) IV PRN (13:30)
[2022-03-01] MEDS ORDERED: LR 1,000 ML IV SCH (13:30)
[2022-03-01] MEDS ORDERED: diphenhydrAMINE 50MG/ML VIAL (J1200) IV PRN (13:30)
[2022-03-01] MEDS ORDERED: fentaNYL 100 MCG/2 ML INJECTION IV PRN (13:30)
[2022-03-01] MEDS ORDERED: oxyCODONE 5MG TAB PO PRN ×2 (13:30→14:20)
[2022-03-01] MEDS ORDERED: MORPHINE 2 MG/ML 1ML VIAL IV PRN ×4 (13:30→14:20)
[2022-03-01] MEDS: SLF 3 ML SYR IV SCH ×2 (13:30→22:00)
[2022-03-01] MEDS ORDERED: ONDANSETRON 4MG 2ML VIAL IV PRN ×2 (13:30→14:20)
[2022-03-01] MEDS ORDERED: **NOTE PATIENT COMMENT** MISC XX SCH (13:30)
[2022-03-01 13:45] LABS: CORD GAS ABE V -10.2; CORD GAS HCO3 V 17.9 MEQ/L; CORD GAS O2 SAT V 36.6 %; CORD GAS PCO2 V 48.3 mmHg; CORD GAS PH V 7.187 UNITS; CORD GAS PO2 V 20.1 mmHg; CORD GAS SBC V 15.3 MEQ/L; CORD GAS TCO2 V 19.4 MEQ/L
[2022-03-01] MEDS ORDERED: BUPIVACAINE HCL 0.25% 10ML VIAL SC ONE (13:45)
[2022-03-01] MEDS ORDERED: BUPIVACAINE HCL 0.25% 30ML VIAL As Ordered ONE (13:46)
[2022-03-01 13:49] LABS: CORD GAS ABE A -9.6; CORD GAS HCO3 A 20.1 MEQ/L; CORD GAS PCO2 A 62.1 mmHg; CORD GAS PH A 7.129 UNITS; CORD GAS PO2 A 10.3 mmHg; CORD GAS TCO2 A 22.1 MEQ/L
[2022-03-01] MEDS ORDERED: BUPIVACAINE HCL 0.25% 10ML VIAL As Ordered ONE (13:49)
[2022-03-01 13:51] LABS: CORD GAS O2 SAT A < 15.0 %
[2022-03-01] MEDS ORDERED: METHYLERGONOVINE MALEATE 0.2 MG TAB PO PRN (14:20)
[2022-03-01] MEDS ORDERED: PERCOCET 5MG/325MG TAB PO PRN (14:20)
[2022-03-01] MEDS ORDERED: OXYTOCIN DRIP 30 UNITS in IV 1 EA IV SCH ×4 (14:20)
[2022-03-01] MEDS ORDERED: RHOGAM 300 MCG (1500 IU) INJ (J2790) IM SCH (14:20)
[2022-03-01] MEDS ORDERED: ACETAMINOPHEN 500 MG TAB PO PRN (14:20)
[2022-03-01] MEDS ORDERED: ACETAMINOPHEN TAB 650MG DOSE (2X325MG) PO PRN (14:20)
[2022-03-01] MEDS ORDERED: BICITRA 30ML SOLN UDC PO ONE (17:00)
[2022-03-01 19:37] LABS: HEMATOCRIT 25.4 % (36.0-47.0); HEMOGLOBIN 7.8 g/dl (12.0-15.5); MEAN CORPUSCULAR HEMOGLOBIN 24.6 pg (27.0-33.0); MEAN CORPUSCULAR HGB CONC 30.7 g/dl (32.0-36.5); MEAN CORPUSCULAR VOLUME 80.1 fl (80.0-96.0); PLATELET COUNT, AUTOMATED 242 10^3/uL (150-450); RED BLOOD COUNT 3.17 10^6/uL (4.00-5.40); WHITE BLOOD COUNT 15.2 10^3/uL (4.0-10.0)
[2022-03-01] MEDS: DOCUSATE SODIUM 100MG CAPSULE PO SCH (20:50)
[2022-03-01] MEDS: SIMETHICONE 80MG CHEW TAB PO PRN (21:30)
[2022-03-02] VITALS (41 sets, daily range): BP systolic 120–177; BP diastolic 72–96
[2022-03-02] MEDS: OXYTOCIN DRIP 30 UNITS in IV 1 EA IV SCH (04:42)
[2022-03-02] MEDS: SLF 3 ML SYR IV SCH (05:30)
[2022-03-02] MEDS: MAG Sulf (OBGYN) 20GM/500ML 20,000 MG in IV 1 EA IV SCH (06:47)
[2022-03-02 06:48] LABS: HEMATOCRIT 22.7 % (36.0-47.0); MEAN CORPUSCULAR HEMOGLOBIN 24.5 pg (27.0-33.0); MEAN CORPUSCULAR HGB CONC 30.4 g/dl (32.0-36.5); MEAN CORPUSCULAR VOLUME 80.5 fl (80.0-96.0); PLATELET COUNT, AUTOMATED 223 10^3/uL (150-450); RED BLOOD COUNT 2.82 10^6/uL (4.00-5.40); WHITE BLOOD COUNT 11.8 10^3/uL (4.0-10.0)
[2022-03-02 06:50] LABS: HEMOGLOBIN 6.9 g/dl (12.0-15.5)
[2022-03-02 07:29] LABS: ALBUMIN 2.3 GM/DL (3.2-5.2); ALT/SGPT 16 U/L (12-78); BILIRUBIN,TOTAL 0.2 MG/DL (0.2-1.0); BLOOD UREA NITROGEN 8 MG/DL (7-18); CALCIUM LEVEL 6.9 MG/DL (8.5-10.1); CARBON DIOXIDE LEVEL 25 MEQ/L (21-32); CHLORIDE LEVEL 103 MEQ/L (98-107); CREATININE FOR GFR 0.77 MG/DL (0.55-1.30); GLOMERULAR FILTRATION RATE > 60.0 (>58); GLUCOSE, FASTING 92 MG/DL (70-100); POTASSIUM SERUM 4.6 MEQ/L (3.5-5.1); SODIUM LEVEL 132 MEQ/L (136-145); TOTAL PROTEIN 5.3 GM/DL (6.4-8.2)
[2022-03-02] MEDS: LR 1,000 ML IV SCH (08:27)
[2022-03-02] MEDS: PRENATAL VITAMINS CHEWABLE TABLET PO SCH (09:06)
[2022-03-02] MEDS: FERROUS SULFATE 325MG TAB PO SCH (09:06)
[2022-03-02] MEDS: SIMETHICONE 80MG CHEW TAB PO PRN ×2 (09:06→20:01)
[2022-03-02] MEDS: DOCUSATE SODIUM 100MG CAPSULE PO SCH ×2 (09:06→20:21)
[2022-03-02] MEDS: ACETAMINOPHEN 500 MG TAB PO PRN ×2 (10:05→20:04)
[2022-03-02] MEDS: LABETALOL 100MG/20ML VIAL IV ONE ×2 (16:41→17:13)
[2022-03-02] MEDS: LABETALOL 200 MG TAB PO SCH (19:09)
[2022-03-02] MEDS ORDERED: ENOXAPARIN 40MG/0.4ML SYRINGE (J1650 PER 10MG) SC SCH (20:00)
[2022-03-02] MEDS: IBUPROFEN 800 MG TAB PO SCH (22:19)
[2022-03-03 02:00] VITALS: BP 136/72
[2022-03-03 06:19] LABS: HEMATOCRIT 21.8 % (36.0-47.0); MEAN CORPUSCULAR HEMOGLOBIN 24.6 pg (27.0-33.0); MEAN CORPUSCULAR HGB CONC 31.2 g/dl (32.0-36.5); PLATELET COUNT, AUTOMATED 238 10^3/uL (150-450); RED BLOOD COUNT 2.76 10^6/uL (4.00-5.40); WHITE BLOOD COUNT 12.7 10^3/uL (4.0-10.0)
[2022-03-03 06:20] VITALS: BP 150/82
[2022-03-03 06:21] LABS: HEMOGLOBIN 6.8 g/dl (12.0-15.5)
[2022-03-03] MEDS: IBUPROFEN 800 MG TAB PO SCH (06:30)
[2022-03-03] MEDS: PRENATAL VITAMINS CHEWABLE TABLET PO SCH (08:58)
[2022-03-03] MEDS: FERROUS SULFATE 325MG TAB PO SCH (08:58)
[2022-03-03] MEDS: DOCUSATE SODIUM 100MG CAPSULE PO SCH (08:58)
[2022-03-03 08:59] VITALS: BP 130/60
[2022-03-03] MEDS: LABETALOL 200 MG TAB PO SCH (08:59)
[2022-03-03] MEDS ORDERED: MEASLES,MUMPS,RUBELLA VACCINE INJ (MMR-II) (90707) SC.IMMUN ONE (09:00)
[2022-03-03] MEDS ORDERED: INFLUENZA QUADRIVALENT PF VACCINE 0.5ML SYRINGE IM.IMMUN ONE (12:00)
== END 2022-03-03 14:00 | disposition home or self-care (01) | DRG 773 ==
LOC: M LDO 14:05 → M LDI 16:14 → M OBS 03-02 16:30
PROVIDERS: ADMIT Obstetrics & Gynecology; ATTEND Obstetrics & Gynecology
PROC: 3E0P7GC Introduction of Other Therapeutic Substance into Female Reproductive, Via Natural or Artificial Opening (ICD-10-PCS; 2022-02-28)
PROC: 10D00Z1 Extraction of Products of Conception, Low, Open Approach (ICD-10-PCS; principal; 2022-03-01 12:47)
DX: O14.14 Severe pre-eclampsia complicating childbirth (principal); Z3A.36 36 weeks gestation of pregnancy; O99.02 Anemia complicating childbirth; D64.9 Anemia, unspecified; O26.03 Excessive weight gain in pregnancy, third trimester; O09.523 Supervision of elderly multigravida, third trimester; O76 Abnormality in fetal heart rate and rhythm complicating labor and delivery; O64.0XX0 Obstructed labor due to incomplete rotation of fetal head, not applicable or unspecified; Z37.0 Single live birth; Z79.82 Long term (current) use of aspirin

== ENCOUNTER 2022-04-13 02:31 | Emergency (ER) | payer OTHER ==
[2022-04-13 02:35] VITALS: BP 159/85
== END 2022-04-13 05:00 | disposition left against medical advice (07) ==
LOC: M ED 02:31
DX: Z53.21 Procedure and treatment not carried out due to patient leaving prior to being seen by health care provider (principal)

== ENCOUNTER 2022-06-23 13:07 | Emergency (ER) | payer OTHER ==
[~2022-06-23] VITALS: Ht 165.1 cm; Wt 79.4 kg
[2022-06-23 14:30] LABS: BASO % 0.5 % (0.0-1.0); EOS # 0.1 10^3/uL (0.0-0.5); EOS % 1.7 % (0.0-3.0); HEMATOCRIT 34.1 % (36.0-47.0); HEMOGLOBIN 10.8 g/dl (12.0-15.5); LYMPH # 1.7 10^3/uL (1.5-5.0); LYMPH % 26.1 % (24.0-44.0); MEAN CORPUSCULAR HEMOGLOBIN 24.4 pg (27.0-33.0); MEAN CORPUSCULAR HGB CONC 31.7 g/dl (32.0-36.5); MEAN CORPUSCULAR VOLUME 77.1 fl (80.0-96.0); MONO # 0.5 10^3/uL (0.0-0.8); MONO % 7.5 % (2.0-8.0); NEUTROPHILS # 4.2 10^3/uL (1.5-8.5); PLATELET COUNT, AUTOMATED 294 10^3/uL (150-450); RED BLOOD COUNT 4.42 10^6/uL (4.00-5.40); WHITE BLOOD COUNT 6.5 10^3/uL (4.0-10.0)
[2022-06-23 14:57] LABS: ALBUMIN 3.9 G/DL (3.2-5.2); BILIRUBIN,DIRECT 0.1 MG/DL (<0.4); BILIRUBIN,TOTAL 0.4 MG/DL (0.3-1.2); TOTAL PROTEIN 7.1 G/DL (5.7-8.2)
[2022-06-23] MEDS ORDERED: NS 1,000 ML IV ONE (15:05)
[2022-06-23] MEDS ORDERED: ONDANSETRON 4MG 2ML VIAL IV ONE (15:05)
[2022-06-23] MEDS ORDERED: ACETAMINOPHEN 1000MG 100ML IV BAG IV ONE (15:05)
[2022-06-23] MEDS ORDERED: ONDA4TAB6 PO (16:23)
[2022-06-23] MEDS ORDERED: CEPH500C PO (16:23)
[2022-06-23 16:28] VITALS: BP 140/89
[2022-06-23 20:55] LABS: HCG, SERUM QUANTITATIVE 227743.8 MIU/ML (<4.2)
== END 2022-06-23 16:37 | disposition home or self-care (01) ==
LOC: M ED 13:07
DX: O23.41 Unspecified infection of urinary tract in pregnancy, first trimester (principal); Z3A.01 Less than 8 weeks gestation of pregnancy; O30.041 Twin pregnancy, dichorionic/diamniotic, first trimester; O99.611 Diseases of the digestive system complicating pregnancy, first trimester; Z79.899 Other long term (current) drug therapy
CPT/HCPCS: 76700; 76817; 80047; 80076; 81000; 81015; 83690; 84702; 85025; 87088; 87186; 96361; 96374; 96375; 99284; J0131; J2405